=== PATIENT | male | born 2000 | race Caucasian/White ===

== ENCOUNTER 2024-05-01 12:30 | Inpatient (IN) | payer SELFPAY ==
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
[2024-05-01 12:37] VITALS: BP 122/96; PULSE 97; RESP 16; TEMP 37; O2SAT 98; BMI 25.8
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
[2024-05-01] MEDS: oxyCODONE HCl Immed Release 5 MG TABLET PO ×3 (12:47→21:00)
--- OUTSIDE RECORDS SUMMARY | 2024-05-01 12:54 | XMS_ITS | Continuity of Care Document ---
Author Organization [facility] Mike Curry John lt Address [address] [place] [address]- Care Team Providers Care Cylinder Honer Name Role Phone Braden Bustamante MD Primary Care Physician [facility] Date[facility]s): 10[facility]20 - 10/17/20 [facility] Mike Curry Adult [address] [place] [address]- Attending Physician: Braden Bustamante MD Allergies, Adverse Reactions, Alerts Substance Reaction Severity Status NKA Active Immunizations Given and Recorded Vaccine Date Status Refusal Reason tetanus/diphtheria/pertussis, acel(Tdap) 03/10/18 Recorded tetanus/diphtheria/pertussis, acel(Tdap) 05/16/13 Recorded Varicella Virus Vaccine 05/16/13 Recorded Varicella Virus Vaccine 03/14/99 Recorded Meningococcal Conjugate Vaccine 01/07/12 Recorded Human Papillomavirus Vaccine 01/07/12 Recorded Influenza Virus Vaccine (oldterm) 05/21/10 Recorde d Influenza Virus Vaccine (oldterm) 07/31/09 Recorde d influ virus vac, H1N1, inactive(oldterm) 07/31/09 Recorded Poliovirus Vaccine, Inactivated 02/23/02 Recorded Poliovirus Vaccine, Inactivated 07/09/99 Recorded Poliovirus Vaccine, Inactivated 98 Recorded Poliovirus Vaccine, Inactivated 98 Recorded Measles/Mumps/Rubella Virus Vaccine 02/23/02 Recor ded Measles/Mumps/Rubella Virus Vaccine 03/14/99 Recor ded diphtheria/tetanus/pertussis, acel(DTaP) 02/23/02 Recorded diphtheria/tetanus/pertussis, acel(DTaP) 03/26/00 Recorded diphtheria/tetanus/pertussis, acel(DTaP) 98 Recorded diphtheria/tetanus/pertussis, acel(DTaP) 98 Recorded diphtheria/tetanus/pertussis, acel(DTaP) 98 Recorded Haemophilus B Conj Vaccine (oldterm) 07/09/99 Reuben rded Haemophilus B Conj Vaccine (oldterm) 98 Reuben rded Haemophilus B Conj Vaccine (oldterm) 98 Reuben rded Hepatitis B Vaccine (old term) 98 Recorded Hepatitis B Vaccine (old term) 98 Recorded Hepatitis B Vaccine (old term) 98 Recorded Not Given Vaccine Date Status Refusal Reason Influenza Virus Vaccine (oldterm) 1 05/30/19 Not G iven Parent Or Guardian Refuses 1Result Comment: PT HAS 99.9 TEMP WITH TYLENOL Medications triamcinolone 0.1% topical cream See Instructions, Apply a thin coat twice daily to affected areas and then wash hands., # 60 Gm, 0 Refills, Maintenance, 10/10/20 11:32:00 EST, [facility]/pharmacy #[id number], Partial fill upon patient request if the prescription is for a schedule II opioid drug.... Start Date: 10/10/20 Status: Ordered Problem List Condition Effective Dates Status Health Status Inform ant Acne(Confirmed) Active Anxiety(Confirmed) Active Brain concussion(Confirmed) Active Dysuria(Confirmed) Active Epididymitis(Confirmed) Active Sinusitis(Confirmed) Active Tinea pedis of both feet(Confirmed) Active Tobacco use(Confirmed) Active Vital Signs Most recent to oldest [Reference Range]: 1 Height 183.5 cm (10/10/20 9:50 AM) Weight 78.0 kg (10/10/20 9:50 AM) Body Mass Index [18.5-24.99] 23.16 (10/10/20 9:50 AM) Weight Obtained Via Standing scale (10/10/20 9:50 AM) Social History Social History Type Response Smoking Status Current every day vilma talley; Type: Cigarettes entered on: 12/04/16 Sex
--- OUTSIDE RECORDS SUMMARY | 2024-05-01 12:54 | XMS_ITS | Continuity of Care Document ---
Author Organization [facility] Mike Curry John lt Address [address] [place] [address]- Care Team Providers Care Outsewer Name Role Phone Robby SHEIKH, Braden Mae Primary Care Physician [facility]): 03/21/21 - 03/28/21 [facility] Mike Curry Adult [address] [place] [address]- Attending Physician: Irwin MENEZES, Jewels Pacheco Allergies, Adverse Reactions, Alerts Substance Reaction Severity [...] PT HAS 99.9 TEMP WITH TYLENOL Medications famotidine 10 mg oral tablet 1 tablet = 10 mg, By Mouth, 2 times a day, # 28 tablet, 0 Refills, Maintenance, 03/21/21 13:34:00 EDT, Tablet, [facility] #[id number], Partial fill upon patient request if the prescription is for a schedule II opioid drug., 183.5, cm, 03/21/21 12:56:00 ED... Start Date: 03/21/21 Status: Ordered hydrOXYzine hydrochloride 25 mg oral tablet 0.5 tablet = 12.5 mg, By Mouth, 4 times a day, PRN as needed for itching, 15 to 30 minutes prior tosurgery, # 60 tablet, 0 Refills, Acute 04/21/21 18:00:00 EDT, 03/21/21 13:32:00 EDT, [id number], Partial fill upon patient request if the presc... Start Date: 03/21/21 Stop Date: 04/21/21 Status: Ordered triamcinolone 0.1% topical cream See Instructions, Apply a thin coat twice daily to affected areas and then wash hands., # 60 Gm, 0 Refills, Maintenance, 10/10/20 11:32:00 EST, [id number], Partial fill upon patient request if the [...] oldest [Reference Range]: 1 Height 183.5 cm (03/21/21 12:56 PM) Weight 72.6 kg (03/21/21 12:56 PM) Oxygen Saturation [94-100 %] 96 % (03/21/21 12:56 PM) Pulse Rate [55-90 bpm] 97 bpm *H* (03/21/21 12:56 PM) Body Mass Index [18.5-24.99] 21.56 (03/21/21 12:56 PM) Blood Pressure [90-138/55-84 mm Hg] 114/ 64mm Hg (03/21/21 12:56 PM) Temperature [96.8-100.4 DegF] 98.7 DegF (03/21/21 12:56 PM) Mode of Delivery (Oxygen) Room air (03/21/21 12:56 PM) Blood pressure sites Arm, left (03/21/21 12:56 PM) Temperature Route Oral (03/21/21 12:56 PM) Weight Obtained Via Standing scale (03/21/21 12:56 PM) Social History Social History Type Response Smoking Status Current every day vilma talley; Type: Cigarettes entered on: 12/04/16 Sex
--- OUTSIDE RECORDS SUMMARY | 2024-05-01 12:54 | XMS_ITS | Continuity of Care Document ---
Author Organization [facility] John lt Address [address] [place] [address]- Care Team Providers Care Roller Skate Assembler Name Role Phone Robby SHEIKH, Braden Mae Primary Care Physician [phone] [facility] Date[facility]s): 10/10/20 - 11/09/20 [facility] Adult [address] [place] [address]- Attending Physician: Liborio Oswald Admitting Physician: AdmLiborio narayan Referring Physician: AdmtrLiborio Allergies, Adverse Reactions, Alerts Substance Reaction Severity [...] Gm, 0 Refills, Maintenance, 10/10/20 11:32:00 EST, [facility]/pharmacy #[id number], Partial fill upon patient request if the prescription is for a schedule II opioid drug.... Start Date: 10/10/20 Status: Ordered Problem List Condition Effective Dates Status Health Status Inform ant Acne(Confirmed) Active Anxiety(Confirmed) Active Brain concussion(Confirmed) Active Dysuria(Confirmed) Active Epididymitis(Confirmed) Active Sinusitis(Confirmed) Active Tinea pedis of both feet(Confirmed) Active Tobacco use(Confirmed) Active Social History Social History Type Response Smoking Status Current every day vilma talley; Type: Cigarettes entered on: 12/04/16 Sex
--- OUTSIDE RECORDS SUMMARY | 2024-05-01 12:54 | XMS_ITS | Continuity of Care Document ---
Author Organization [facility] Mike Curry John lt Address [address] [place] [address]- Care Team Providers Care Electrophysiology Scientist Name Role Phone Braden Bustamante MD Primary Care Physician [facility] Date[facility]s): 04/13/21 - 09/12/21 [facility] Mike Curry Adult [address] [place] [address]- Attending Physician: Braden Bustamante MD Allergies, Adverse Reactions, Alerts No Known Allergies Immunizations Given and Recorded Vaccine Date Status [...] Comment: PT HAS 99.9 TEMP WITH TYLENOL Problem List Condition Effective Dates Status Health Status Inform ant Acne(Confirmed) Active Anxiety(Confirmed) Active Brain concussion(Confirmed) Active Dysuria(Confirmed) Active Epididymitis(Confirmed) Active Fatigue(Confirmed) Active Hair loss(Confirmed) Active Sinusitis(Confirmed) Active Tinea pedis of both feet(Confirmed) Active Tobacco use(Confirmed) Active Social History Social History Type Response Smoking Status Former smoker, quit more than 30 days ago entered on: 06/14/21 Sex
--- OUTSIDE RECORDS SUMMARY | 2024-05-01 12:54 | XMS_ITS | Continuity of Care Document ---
Author Organization [facility] Patricio John lt Address [address] [place] [address]- Care Team Providers Care Credit Checker Name Role Phone Robby SHEIKH, Braden Mae Primary Care Physician Encounter [facility] Date(s): 10/18/19 - 10/28/19 [facility] [place] Adult [address] [place] [address]- [facility] Attending Physician: Liborio Oswald Admitting Physician: AdmLiborio [...]
--- OUTSIDE RECORDS SUMMARY | 2024-05-01 12:54 | XMS_ITS | Continuity of Care Document ---
Author Organization [facility] John lt Address [address] [place] [address]- Care Team Providers Care Education Nurse Name Role Phone Braden Bustamante MD Primary Care Physician [phone] Encounter [facility] Date(s): 05/11/23 - 05/18/23 [facility] Adult [address] [place] [address]- Attending Physician: Braden Bustamante MD Allergies, Adverse Reactions, Alerts No Known Allergies Immunizations Given and Recorded Vaccine Date Status Refusal Reason influenza virus vaccine, inactivated 1 05/11/23 [facility] SARS-CoV-2 (COVID-19) mRNA BNT-162b2 vac 08/20/21 Recorded tetanus-diphtheria toxoids (Td) 04/13/18 Recorded tetanus/diphtheria/pertussis, acel(Tdap) 03/10/18 Recorded tetanus/diphtheria/pertussis, acel(Tdap) 05/16/13 [...] Hepatitis B Vaccine (old term) 98 Recorded 1Result Comment: [facility]-[id number] Medications clindamycin-tretinoin 1.2%-0.025% topical gel 1 application, Topically, Daily at bedtime, # 60 Gm, 0 Refills, Maintenance, 05/11/23 13:22:00 EDT,[facility], Partial fill upon patient request if the prescription is for a schedule II opioid drug. Start Date: 05/11/23 Status: Ordered Doxycycline 100 mg, By Mouth, 2 times a day, Maintenance, 05/11/23 13:21:00 EDT Start Date: 05/11/23 Status: Ordered Problem List Condition Confirmation Course Effective Dates Status Health St atus Informant Acne Confirmed Active Anxiety Confirmed Active Brain concussion Confirmed Active Dysuria Confirmed Active Epididymitis Confirmed Active Fatigue Confirmed Active Hair loss Confirmed Active Sinusitis Confirmed Active Tinea pedis of both feet Confirmed Active Tobacco use Confirmed Active Vital Signs Most recent to oldest [Reference Range]: 1 Height 183.5 cm (05/11/23 1:18 PM) Weight 85.2 kg (05/11/23 1:18 PM) Oxygen Saturation [94-100 %] 98 % (05/11/23 1:18 PM) Pulse Rate [55-90 bpm] 87 bpm (05/11/23 1:18 PM) Body Mass Index [18.5-24.99 kg/m2] 25.3 kg/m2 *H* (05/11/23 1:18 PM) Blood Pressure [90-138/55-84 mm Hg] 125/ 58mm Hg (05/11/23 1:18 PM) Respiratory Rate [16-30 br/min] 16 br/mi n (05/11/23 1:18 PM) Temperature [96.8-100.4 DegF] 98.3 DegF (05/11/23 1:18 PM) Mode of Delivery (Oxygen) Room air (05/11/23 1:18 PM) Blood pressure sites Arm, left (05/11/23 1:18 PM) Temperature Route Oral (05/11/23 1:18 PM) Weight Obtained Via Standing scale (05/11/23 1:18 PM) Social History Social History Type Response Smoking Status Former smoker, quit more than 30 days ago entered on: 06/14/21 Sex Patient Care team information Care Team Personnel Name: Braden Bustamante MD Position: S Physician - Primary Care Member Role: PCP Address: Address: [address] [place] [address]- Care Team Related Persons Name: PEDRO CASTRO Address: [address] [place] [address] Name: PEDRO CASTRO Address: home [address] [place] [id number] Name: KASEY MENON Address: home [address] [place] [address]
--- OUTSIDE RECORDS SUMMARY | 2024-05-01 12:54 | XMS_ITS | Continuity of Care Document ---
Author Organization [facility] Mike Curry John Address [address] [place] [address]- Care Team Providers Care Clinical Fellow Name Role Phone Braden Bustamante MD Primary Care Physician [phone] [facility] Date(s): 07/19/19 - 11/17/19 [facility] Mike Carcamoley Adult [address] [place] [address]- [facility] Attending Physician: Braden Bustamante MD Allergies, Adverse [...]
--- OUTSIDE RECORDS SUMMARY | 2024-05-01 12:54 | XMS_ITS | Continuity of Care Document ---
Author Organization [facility] Patricio John lt Address [address] [place] [address]- Care Team Providers Care What Job Titles Mean Name Role Phone Braden Bustamante MD Primary Care Physician [facility] Date(s): 06/14/21 - 06/21/21 [facility] Mike Carcamoley Adult [address] [place] [address]- Attending Physician: Braden Bustamante MD Allergies, Adverse [...] oldest [Reference Range]: 1 Height 183.5 cm (06/14/21 2:03 PM) Weight 76.36 kg (06/14/21 2:03 PM) Body Mass Index [18.5-24.99] 22.68 (06/14/21 2:03 PM) Weight Obtained Via Standing scale (06/14/21 2:03 PM) Social History Social History Type Response Smoking Status Former smoker, quit more than 30 days ago entered on: 06/14/21 Sex
--- OUTSIDE RECORDS SUMMARY | 2024-05-01 12:54 | XMS_ITS | Continuity of Care Document ---
Author Organization [facility] Mike Curry John lt Address [address] [place] [address]- Care Team Providers Care Carrier Operator Name Role Phone Braden Bustamante MD Primary Care Physician [phone] Encounter [facility] Date(s): 01/10/21 - 01/17/21 [facility] [place] Adult [address] [place] [address]- Attending Physician: Braden Bustamante MD Allergies, Adverse [...] Gm, 0 Refills, Maintenance, 10/10/20 11:32:00 EST, [facility]/pharmacy #[id number], Partial fill upon patient request if [...] oldest [Reference Range]: 1 Height 183.5 cm (01/10/21 11:13 AM) Weight 77.5 kg (01/10/21 11:13 AM) Oxygen Saturation [94-100 %] 98 % (01/10/21 11:13 AM) Pulse Rate [55-90 bpm] 60 bpm (01/10/21 11:13 AM) Body Mass Index [18.5-24.99] 23.02 (01/10/21 11:13 AM) Blood Pressure [90-138/55-84 mm Hg] 98/6 0mm Hg (01/10/21 11:13 AM) Respiratory Rate [16-30 br/min] 16 br/mi n (01/10/21 11:13 AM) Temperature [96.8-100.4 DegF] 98.3 DegF (01/10/21 11:13 AM) Mode of Delivery (Oxygen) Room air (01/10/21 11:13 AM) Blood pressure sites Arm, right (01/10/21 11:13 AM) Temperature Route Oral (01/10/21 11:13 AM) Weight Obtained Via Standing scale (01/10/21 11:13 AM) Social History Social History Type Response Smoking Status Current every day vilma talley; Type: Cigarettes entered on: 12/04/16 Sex
--- OUTSIDE RECORDS SUMMARY | 2024-05-01 12:54 | XMS_ITS | Continuity of Care Document ---
Author Organization [facility] John lt Address [address] [place] [address]- Care Team Providers Care Cross Tie Turner Name Role Phone Robby SHEIKH, Braden Mae Primary Care Physician [facility] Date(s): 08/13/21 - 09/12/21 [facility] Adult [address] [place] [address]- Attending Physician: Liborio Oswald Admitting Physician: AdmLiborio narayan Referring Physician: AdmtrLiborio Allergies, Adverse Reactions, Alerts No Known Allergies [...]
[2024-05-01] MEDS: Acetaminophen 325 MG TABLET 975 MG PO (13:15)
[2024-05-01] MEDS: Ibuprofen 600 MG TABLET PO (13:16)
[2024-05-01 15:18] VITALS: BP 114/61; PULSE 96; RESP 18; TEMP 36.7; O2SAT 98
--- NOTE | 2024-05-01 15:59 | PHA.MEDREC ---
Addendum entered by Chirag Thomas [facility] 05/01/24 16:47: MED REC CHECKED PER [facility] Original Note: Pharmacy Consult ? Medication Reconciliation Pharmacy has completed the medication reconciliation.
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
[2024-05-01 17:08] LABS: Basophils Percent Auto 0.2 % (0-2); Eosinophils Percent Auto 0.1 % (0-4); Hematocrit 48.4 % (42.0-52.0); Hemoglobin 16.7 g/dl (14.0-18.0); Imm Gran Abs Auto 0.08 X10*3/uL (0.00-0.03); Imm Gran Pct Auto 0.4 % (0.0-0.4); Lymphocytes Absolute Auto 1.1 X10*3/uL (1.2-4.9); MANUAL DIFF FLAG NO; Mean Corpuscular HGB Conc 34.5 g/dl (31.0-36.0); Mean Corpuscular Volume 92.7 fL (80.0-98.0); Mean Platelet Volume 10.4 fL (9.4-12.4); Monocytes Absolute Auto 1.2 X10*3/uL (0.1-1.2); Monocytes Percent Auto 6.6 % (2-11); Neutrophils Absolute Auto 15.4 x10*3/uL (2.0-8.3); Neutrophils Percent Auto 86.7 % (45-73); Platelet Count 336 X10*3/uL (160-400); Red Blood Count 5.22 X10*6/uL (4.60-5.80); Red Cell Distribution Width 13.2 % (11.0-16.0); White Blood Count 17.8 X10*3/uL (4.8-10.8)
[2024-05-01] MEDS: Lactated Ringers 1,000 ML 100 ML IVCONT (17:14)
--- NOTE | 2024-05-01 19:22 | PC.NURSE ---
pt resting quietly on exam room stretcher, Posterior long leg splint applied loosely by orthpedics PA- right leg elevated per ortho above the heart. pt verbalizes pain improvement with splinting, positioning, elevation and medication. Plan is for IMN in OR in AM.
[2024-05-01 19:29] VITALS: BP 116/58; PULSE 96; RESP 16; TEMP 37.1; O2SAT 97
[2024-05-01 20:25] VITALS: BP 117/57; PULSE 109; RESP 18; TEMP 36.7; O2SAT 97
[2024-05-01] MEDS: Melatonin 3 MG TABLET 6 MG PO (22:11)
[2024-05-01 22:49] VITALS: BMI 26.0
[2024-05-01 23:16] VITALS: BP 117/56; PULSE 88; RESP 18; TEMP 36.6; O2SAT 97
[2024-05-01] MEDS: HYDROmorphone HCl 0.5 MG/0.5 ML SYRINGE 0.25 MG IVPUSH (23:35)
[2024-05-02] VITALS (11 sets, daily range): BP systolic 112–140; BP diastolic 55–79; PULSE 82–130; RESP 14–18; TEMP 36.5–37.7; O2SAT 95–99; BMI 26.0
[2024-05-02] MEDS: Lactated Ringers 1,000 ML 100 ML IVCONT ×2 (01:52→10:47)
[2024-05-02] MEDS: oxyCODONE HCl Immed Release 5 MG TABLET PO ×3 (01:52→08:22)
[2024-05-02] MEDS: HYDROmorphone HCl 0.5 MG/0.5 ML SYRINGE 0.25 MG IVPUSH ×4 (03:12→21:37)
--- NOTE | 2024-05-02 05:23 | PC.NURSE ---
right leg elevated on4-5 pillow +cms to toes. pt asked to remove some of the bandage it was too tight around the ankle . felt better after, some relief from ice application only for little while
[2024-05-02 06:53] LABS: MANUAL DIFF FLAG NO
[2024-05-02 07:22] LABS: Basophils Percent Auto 0.2 % (0-2); Eosinophils Absolute Auto 0.3 X10*3/uL (0.0-0.4); Eosinophils Percent Auto 2.2 % (0-4); Hemoglobin 16.1 g/dl (14.0-18.0); Imm Gran Abs Auto 0.06 X10*3/uL (0.00-0.03); Imm Gran Pct Auto 0.5 % (0.0-0.4); Lymphocytes Absolute Auto 2.6 X10*3/uL (1.2-4.9); Lymphocytes Percent Auto 19.5 % (20-40); Mean Corpuscular HGB Conc 33.5 g/dl (31.0-36.0); Mean Corpuscular Hemoglobin 31.9 pg (27.0-33.0); Mean Corpuscular Volume 95.2 fL (80.0-98.0); Monocytes Absolute Auto 1.4 X10*3/uL (0.1-1.2); Monocytes Percent Auto 10.8 % (2-11); Neutrophils Absolute Auto 8.7 x10*3/uL (2.0-8.3); Neutrophils Percent Auto 66.8 % (45-73); Platelet Count 299 X10*3/uL (160-400); Red Blood Count 5.04 X10*6/uL (4.60-5.80); Red Cell Distribution Width 13.7 % (11.0-16.0); White Blood Count 13.1 X10*3/uL (4.8-10.8)
[2024-05-02 07:24] LABS: Anion Gap 12 (12-20); Blood Urea Nitrogen 12 mg/dL (9-16); Calcium 8.8 mg/dL (8.4-10.2); Carbon Dioxide 27 mmol/L (22-29); Chloride 107 mmol/L (96-108); Creatinine Clr Calc Pharmacy 126.6; Estimated Glomerular Filt Rate > 60; Glucose Fasting 81 mg/dL (60-99); Potassium 4.3 mmol/L (3.3-5.1); Sodium 142 mmol/L (135-145)
--- NOTE | 2024-05-02 09:50 | MHC.CM.PN ---
PT LIVES WITH S/O IS INDEPENDENT HAS OWN RIDE HOME DC PLAN HOME NO SERVIES
--- NOTE | 2024-05-02 13:17 | PC.NURSE ---
Pt asking for increase in pain med, waiting for provider to increase.
[2024-05-02] MEDS: oxyCODONE HCl Immed Release 5 MG TABLET 10 MG PO ×2 (13:44→19:43)
--- NOTE | 2024-05-02 14:30 | P.CONAN_ITS ---
PMFSH Active Problems Active Problems: All Active Problems Closed fracture of posterior malleolus of right tibia (Acute) Closed fracture of right tibia and fibula (Acute) Closed fracture of posterior malleolus (Acute) Fracture of tibia and fibula (Acute) Family History Family history of problems with anesthesia: No Surgical History History of Problems with Anesthesia: No Social History Social History Household Members: Friend(s) Housing: House Do you presently have visiting nurse or other home services: No Patient Tobacco Use Status: Never used Tobacco e-Cigarette/Vaping Use: Never Used Substance Use Type: Marijuana service: No Meds Allergies Allergy/AdvReac Type Severity Reaction Status Date / Time No Known Allergies Allergy Verified 05/01/24 12:40 Active Medications: Current Medications Acetaminophen (Acetaminophen 325 Mg Tablet) 650 mg PO Q6H PRN PRN Reason: Pain, Mild (Pain Scale 1-3), fever or headache Hydromorphone HCl (Hydromorphone Hcl 0.5 Mg/0.5 Ml Syringe) 0.25 mg IVPUSH Q4H PRN; Protocol PRN Reason: Pain, Severe (Pain Scale 7-10) Last Admin: 05/02/24 11:37 Dose: 0.25 mg Lactated Ringer's (Lr) 1,000 mls @ 100 mls/hr IVCONT .Q10H IVETTE Last Admin: 05/02/24 10:47 Dose: 100 mls/hr Melatonin (Melatonin 3 Mg Tablet) 6 mg PO BEDTIME PRN PRN Reason: Insomnia Last Admin: 05/01/24 22:11 Dose: 6 mg Oxycodone HCl (Oxycodone Hcl Immed Release 5 Mg Tablet) 10 mg PO Q4H PRN PRN Reason: Pain, Moderate(Pain Scale 4-6) Last Admin: 05/02/24 13:44 Dose: 10 mg Sodium Chloride (0.9 % Sodium Chloride Flush 3 Ml Syringe) 3 ml IVFLUSH QSHIFT IVETTE Last Admin: 05/02/24 07:09 Dose: Not Given Exam Height,Weight and Vital Signs: Height 6 ft Weight 87 kg Last Vital Signs Temp 98.4 F 05/02/24 08:00 Pulse 93 05/02/24 08:00 Resp 14 05/02/24 08:00 BP 114/55 L 05/02/24 08:00 Pulse Ox 97 05/02/24 08:00 O2 Del Method Room Air 05/02/24 08:00 Pertinent Lab Results Pertinent Lab Results: Laboratory Tests 05/01/24 05/01/24 05/02/24 16:52 17:07 05:04 WBC 17.8 H 13.1 H RBC 5.22 5.04 Hgb 16.7 16.1 Hct 48.4 48.0 MCV 92.7 95.2 MCH 32.0 31.9 MCHC 34.5 33.5 RDW 13.2 13.7 Plt Count 336 299 MPV 10.4 11.0 Immature Gran % (Auto) 0.4 0.5 H Neut % (Auto) 86.7 H 66.8 Lymph % (Auto) 6.0 L 19.5 L [place] % (Auto) 6.6 10.8 Eos % (Auto) 0.1 2.2 Baso % (Auto) 0.2 0.2 Lymph # (Auto) 1.1 L 2.6 [place] # (Auto) 1.2 1.4 H Eos # (Auto) 0.0 0.3 Baso # (Auto) 0.0 0.0 Abs Immat Gran (auto) 0.08 H 0.06 H Absolute Neuts (auto) 15.4 H 8.7 H Absolute Nucleated RBC 0.000 0.000 Nucleated RBC % (auto) 0.0 0.0 Sodium 142 Potassium 4.3 Chloride 107 Carbon Dioxide 27 Anion Gap 12 BUN 12 Creatinine 0.97 Estim Creat Clear Calc 126.6 Estimated GFR > 60 Fasting Glucose 81 Calcium 8.8 Blood Type A Positive Antibody Screen NEGATIVE Airway Mallampati Class: I TM Dist: >3cm Neck ROM: Full Heart: rrr Lungs: cta Assessment and Plan Assessment Anesthesia Assessment: Anesthesia Plan Discussed and Chart Reviewed Final Anesthetic Review Family History of Problems with Anesthesia: No History of Problems with Anesthesia: No NPO: Yes ASA Class: I and Emergency Final Preanesthetic Review: No Changes in Pt Med Stat, Meds/Allgs Chart Reviewed and Consent Obtained/Reviewed Patient Risk: Low Procedure Risk: Low Anesthetic Plan Anesthetic Plan: GA Disposition: Standard PACU
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
[2024-05-03] MEDS: Melatonin 3 MG TABLET 6 MG PO
[2024-05-03] MEDS: oxyCODONE HCl Immed Release 5 MG TABLET 10 MG PO ×3 (00:02→08:20)
[2024-05-03] MEDS: Lactated Ringers 1,000 ML 100 ML IVCONT ×2 (00:04→10:34)
[2024-05-03] MEDS: HYDROmorphone HCl 0.5 MG/0.5 ML SYRINGE 0.25 MG IVPUSH ×2 (01:08→05:52)
[2024-05-03 03:18] VITALS: BP 114/56; PULSE 90; RESP 18; TEMP 37; O2SAT 97
[2024-05-03 06:59] LABS: Basophils Percent Auto 0.1 % (0-2); Eosinophils Absolute Auto 0.1 X10*3/uL (0.0-0.4); Eosinophils Percent Auto 0.4 % (0-4); Hematocrit 43.4 % (42.0-52.0); Hemoglobin 14.8 g/dl (14.0-18.0); Imm Gran Abs Auto 0.08 X10*3/uL (0.00-0.03); Imm Gran Pct Auto 0.5 % (0.0-0.4); Lymphocytes Absolute Auto 2.4 X10*3/uL (1.2-4.9); MANUAL DIFF FLAG SCAN; Mean Corpuscular HGB Conc 34.1 g/dl (31.0-36.0); Mean Corpuscular Hemoglobin 32.1 pg (27.0-33.0); Mean Corpuscular Volume 94.1 fL (80.0-98.0); Mean Platelet Volume 11.1 fL (9.4-12.4); Monocytes Absolute Auto 1.8 X10*3/uL (0.1-1.2); Monocytes Percent Auto 11.2 % (2-11); Neutrophils Absolute Auto 11.8 x10*3/uL (2.0-8.3); Neutrophils Percent Auto 72.8 % (45-73); Platelet Count 288 X10*3/uL (160-400); Red Blood Count 4.61 X10*6/uL (4.60-5.80); Red Cell Distribution Width 13.6 % (11.0-16.0); SCAN SMEAR FLAG 1; White Blood Count 16.2 X10*3/uL (4.8-10.8)
[2024-05-03 07:43] VITALS: BP 114/58; PULSE 99; RESP 14; TEMP 37; O2SAT 97
[2024-05-03 08:17] LABS: SLIDE REVIEW VERIFIED
--- NOTE | 2024-05-03 08:21 | HO.POSTANES ---
Post Anesthesia Evaluation Post Anesthesia Evaluation Date of Service: 05/02/24 Vital Signs: Vital Signs Temp Pulse Resp BP Pulse Ox O2 Del Method 05/03/24 07:43 98.6 F 99 14 114/58 L 97 Room Air 05/03/24 03:18 98.6 F 90 18 114/56 L 97 Room Air 05/02/24 23:46 97.7 F 100 18 112/55 L 97 Room Air Anesthesia: General Mental Status: Awake Pain Control: Satisfactory Nausea/Vomiting: None Hydration: Adequate Anesthesia-Related Issues: No Anes. Related Issues
--- NOTE | 2024-05-03 10:32 | PM.PNORT ---
Subjective Subjective Date of Service: 05/03/24 Interval history: Patient is POD 1 s/p R tibia IMN Patient is resting comfortably in bed Reports that pain is significantly improved from pre-op Reports no feelings of pressure in the RLE No numbness or tingling in RLE No other acute complaints or concerns at this time Physical Exam Vital Signs: Vital Signs: Last Vital Signs Temp 98.6 F 05/03/24 07:43 Pulse 99 05/03/24 07:43 Resp 14 05/03/24 07:43 BP 114/58 L 05/03/24 07:43 Pulse Ox 97 05/03/24 07:43 O2 Del Method Room Air 05/03/24 07:43 O2 Flow Rate 2 05/02/24 19:20 BMI result Body Mass Index 26.0 Extrem: Other: Splint on right lower extremity clean, dry, intact Compartments soft and compressible to palpation Patient reports minimal tenderness to the right lower extremity with palpation of compartments Patient is able to flex and extend the digits of the right foot without difficulty Distal sensation intact Capillary refill brisk Procedures Date of Service Date of Service: 05/03/24 Progress Note: A&P Assessment and plan (1) Closed fracture of posterior malleolus of right tibia: Status: Acute (2) Closed fracture of right tibia and fibula: Status: Acute Plan 1. Right tibial shaft fracture status post IM nail placement DOS 05/02/2024 2. Nondisplaced right fibular shaft fracture 3. Nondisplaced posterior malleolus fracture, right Patient is educated about these fractures Patient is educated about the typical recovery course Patient is educated that further surgical intervention was not indicated for the other fractures in his right lower leg, as they will be able to heal without surgery Patient will be toe-touch weight-bearing on the right lower extremity Patient will remain in a splint until follow-up, to allow for decreases in swelling Patient will be evaluated by PT this morning, hopeful for discharge this afternoon Patient will follow-up in our office in 1 week with repeat x-rays Patient is amenable to this plan Time Spent With Patient Time: Total time managing care of this patient today ____ minutes. Quality Stroke Does the patient have a stroke diagnosis?: No VTE Prior VTE?: No VTE Risk Level:: Surgical - high VTE Device Contraindication: N/A - Device Ordered VTE Drug Contraindication: Treatment Not Indicated (Patient having surgery tomorrow)
[2024-05-03] MEDS: Acetaminophen 325 MG TABLET 650 MG PO (10:33)
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
--- NOTE | 2024-05-03 11:11 | MHC.CM.PN ---
pt dcd home self care
--- NOTE | 2024-05-03 11:17 | PM.DS ---
DS: Providers Provider Date of Service: 05/03/24 Date of admission: 05/01/24 16:17 Primary care physician: Braden Bustamante MD DS: Diagnosis Discharge Diagnosis (1) Closed fracture of posterior malleolus of right tibia: Status: Acute (2) Closed fracture of right tibia and fibula: Status: Acute DS: Summary Hospital Course Hospital Course: The patient underwent a successful right tibia IM nail placement on 05/02/2024 for right tibial shaft fracture, was transferred to PACU and then to the floor to recover. During their stay, their vitals were stable, afebrile at 98.6. Labs were unremarkable, H/H 14.8/43.4. they received Physical Therapy services twice a day. He is TTWB on right lower extremity. The splint and dressing should remain intact and dry at all times. Any concerns with the dressing, please contact orthopedic office. No showering. The plan is to be discharged Time Attestation Discharge Coordination Time (in mins): 30 minutes Quality: Safe Use of Opioids Does Pt have an Active Cancer Diagnosis on the Problem List?: No Quality: Stroke Does the patient have a stroke diagnosis?: No Physical Exam Vital Signs: Vital Signs: Last Vital Signs Temp 98.6 F 05/03/24 07:43 Pulse 99 05/03/24 07:43 Resp 14 05/03/24 07:43 BP 114/58 L 05/03/24 07:43 Pulse Ox 97 05/03/24 07:43 O2 Del Method Room Air 05/03/24 07:43 O2 Flow Rate 2 05/02/24 19:20 BMI result Body Mass Index 26.0 Extrem: Other: Splint on right lower extremity clean, dry, intact Compartments soft and compressible to palpation Patient reports minimal tenderness to the right lower extremity with palpation of compartments Patient is able to flex and extend the digits of the right foot without difficulty Distal sensation intact Capillary refill brisk DS: Data Data Completed and Pending Labs on day of discharge: Laboratory Results - last 24 hr 05/03/24 05:19 WBC 16.2 H RBC 4.61 Hgb 14.8 Hct 43.4 MCV 94.1 MCH 32.1 MCHC 34.1 RDW 13.6 Plt Count 288 MPV 11.1 Immature Gran % (Auto) 0.5 H Neut % (Auto) 72.8 Lymph % (Auto) 15.0 L Calhoun % (Auto) 11.2 H Eos % (Auto) 0.4 Baso % (Auto) 0.1 Lymph # (Auto) 2.4 Calhoun # (Auto) 1.8 H Eos # (Auto) 0.1 Baso # (Auto) 0.0 Abs Immat Gran (auto) 0.08 H Absolute Neuts (auto) 11.8 H Absolute Nucleated RBC 0.000 Nucleated RBC % (auto) 0.0 Smear Tech's Comments VERIFIED Discharge Plan Discharge Anticipated Discharge Date/Time: 05/03/24 14:00 Patient Disposition: Home, Self-Care Discharge Diagnosis: S/p R tibia IM nail placement, R fibular shaft fracture, R posterior malleolus fracture Referrals: Torin John PA [[facility] Desktop Support Specialist] - 1 Week ([facility] Orthopedic Surgeons Appointment on 05/13/24 at 11:30 w/ Torin John) Discharge Medications: New acetaminophen 325 mg Tablet 650 mg PO Q6H PRN (Reason: Pain, Mild (Pain Scale 1-3), fever or headache) 30 Days Qty: 240 0RF oxycodone 10 mg tablet 10 mg PO Q4H PRN (Reason: Pain, Moderate(Pain Scale 4-6)) 7 Days Qty: 42 0RF Rx Instructions: Partial Fill upon patient request. ibuprofen 800 mg tablet 800 mg PO Q6H PRN (Reason: pain) 7 Days Qty: 28 0RF Discharge Orders: Discharge Order (Routine); Ordered 05/03/24 Ordered By: Torin John Diet: Advance to usual diet Activity on Discharge: Toe touch weight bearing on RLE Stand Alone Forms: Patient Portal Discharge page Print Language: Uzbek Care Plan Goals: Fracture healing of R tibia, R fibula, R posterior malleolus Caodaism of normal function of right lower extremity Health Concerns: R tibia fracture s/p IMN R fibula fx R posterior malleolus fracture Plan of Treatment: Toe touch weight bearing on RLE Use crutches to aid with ambulation ? No showering, no tub bath-keep splint clean, dry and intact ? No driving ? Follow up with [facility] Orthopedics in 1 week on 05/13/24 with Torin John at 11:30 Assessment: Stable for d/c
== END 2024-05-03 12:18 | disposition home or self-care (01) | DRG 494 ==
LOC: HO.ED 15:00 → HO.EDOVER 16:32 → HO.S3 19:24
PROVIDERS: Orthopaedic Surgery; Emergency Provider Emergency Medicine; PCP Internal Medicine
PROC: 0QSG36Z Reposition Right Tibia with Intramedullary Internal Fixation Device, Percutaneous Approach (ICD-10-PCS; principal; 2024-05-02 15:00)
DX: S82.234A Nondisplaced oblique fracture of shaft of right tibia, initial encounter for closed fracture (principal); S82.431A Displaced oblique fracture of shaft of right fibula, initial encounter for closed fracture; S82.891A Other fracture of right lower leg, initial encounter for closed fracture; V86.96XA Unspecified occupant of dirt bike or motor/cross bike injured in nontraffic accident, initial encounter
CPT/HCPCS: 36415; 73590; 73600; 73620; 80048; 85025; 86850; 86900; 86901; 97161; 99285; C1713; J0690; J1100; J1170; J2250; J2405; J2704; J2795; J3010; J7120

== ENCOUNTER → 2024-05-01 16:17 | Outpatient (BNV) | payer SELFPAY | PROVIDERS: Emergency Provider Emergency Medicine; PCP Internal Medicine | DX: S82.391A Other fracture of lower end of right tibia, initial encounter for closed fracture (principal); S82.201A Unspecified fracture of shaft of right tibia, initial encounter for closed fracture; S82.401A Unspecified fracture of shaft of right fibula, initial encounter for closed fracture | CPT/HCPCS: 27759; 99024; 99222 ==

== ENCOUNTER 2024-05-13 10:51 | Outpatient (REF) | payer SELFPAY ==
--- NOTE | ~2024-05-13 | XR_ITS ---
EXAMINATION: XR ANKLE RIGHT 3 VIEWS CLINICAL INFORMATION: Pain in unspecified ankle and joints of unspecified foot M25.579. COMPARISON: XR Right ankle 05/01/2024 TECHNIQUE: AP, lateral and oblique views of the right ankle. FINDINGS: Visualized portions of the distal tibia and fibula demonstrate no acute fracture. Ankle mortise is maintained. There are some mild degenerative changes of the tibiofibular joint. Partially visualized hardware of the tibia with interval partial healing of a distal oblique tibial fracture. Nondisplaced posterior malleolus fracture is again noted with no significant interval callus formation. XR/XR ankle RT min 3V IMPRESSION: 1. No acute fracture. 2. Partially visualized hardware of the tibia with interval partial healing of distal tibial fracture and no significant interval healing of posterior malleolus fracture. Electronically signed by: Bashir Wylie MD 07/20/2024 08:57 AM VERNA
--- NOTE | ~2024-05-13 | XR_ITS ---
EXAMINATION: XR TIBIA AND FIBULA RIGHT 3 VIEWS CLINICAL INFORMATION: Other fracture of lower end of right tibia, initial encounter for closed fracture S82.391A. COMPARISON: XR Right tibia fibula 05/01/2024 TECHNIQUE: AP and lateral views of the right tibia and fibula were obtained. FINDINGS: Patient is status post intramedullary josseline and screw fixation through the distal tibial fracture which demonstrates mild interval callus formation. Fracture line is still well visualized. Also noted is a partially healed fracture of the mid fibula. XR/XR tibia fibula RT 2V IMPRESSION: Mild interval callus formation of distal tibia and fibular fractures. Electronically signed by: Bashir Wylie MD 07/20/2024 08:59 AM EST
== END 2024-05-13 10:52 | disposition home or self-care (01) ==
LOC: HO.HOSX 10:51
PROVIDERS: PCP Internal Medicine; Visit Provider Physician Assistant
DX: M25.571 Pain in right ankle and joints of right foot (principal); S82.391D Other fracture of lower end of right tibia, subsequent encounter for closed fracture with routine healing; S82.201D Unspecified fracture of shaft of right tibia, subsequent encounter for closed fracture with routine healing; S82.401D Unspecified fracture of shaft of right fibula, subsequent encounter for closed fracture with routine healing; Z98.890 Other specified postprocedural states
CPT/HCPCS: 73590; 73610; 99212

== ENCOUNTER 2024-05-13 11:23 | Outpatient (AMB) | payer SELFPAY ==
--- NOTE | 2024-05-13 10:54 | A.OFFVIS_ITS ---
Intake Visit Reasons: PO-R tibia IMN 05/02/24 Intake Note: Jhonatan is a 24 year old male who presents today post operatively S/P right tibia IM nail placement for right tibial shaft fracture w/ Dr Blum DOS: 05/02/2024. Pt states the past two days he has noticed less pain. Pt states he doesn't feel as much of a pulsating feeling anymore when he lifts his legs. Pt states he has been using the crutches as directed. Allergies No Known Allergies Allergy (Verified 05/13/24 10:54) HPI HPI PO-R tibia IMN 05/02/24: Details: 24-year-old male who presents in the office today one week status post right tibial IM nailing which was performed on 05/02/[address] Blum. While in the office today, the patient reports improved pain for the past 2 days. He mentions he has not been feeling much ?pulsating? when he lifts his right lower extremity. He has been using the crutches as directed. [facility] Social History Household Members: Friend(s) Housing: House Are you a primary healthcare account manager to a significant other at home: No Do you presently have visiting nurse or other home services: No Patient Tobacco Use Status: Never used Tobacco e-Cigarette/Vaping Use: Never Used Substance Use Type: Marijuana service: No Review of Systems Const All systems reviewed & are unremarkable except as noted in HPI and below Physical Exam Const General: cooperative, healthy appearing and no acute distress Resp Effort & Inspection: normal respiratory effort and able to speak in complete sentences Cardio Rate: regular rate Peripheral pulses: Peripheral pulses 2+ throughout GI Palpation (GI): Soft to palpation Skin Lesions: no lesions Rashes: no rashes Extrem Other: Right lower extremity: Incision sites are clean, dry, and intact. Hamlet intact. Moderate edema in the right foot and ankle. Able to dorsiflex and plantarflex. Able to perform knee flexion and extension. Sensation is intact. NVI. Assessment & Plan Assessment & Plan (1) Closed fracture of posterior malleolus of right tibia: Code(s): S82.391A - Other fracture of lower end of right tibia, initial encounter for closed fracture Category: Medical (2) Closed fracture of right tibia and fibula: Code(s): S82.201A - Unspecified fracture of shaft of right tibia, initial encounter for closed fracture; S82.401A - Unspecified fracture of shaft of right fibula, initial encounter for closed fracture Category: Medical (3) Fracture of tibia and fibula: Code(s): S82.209A - Unspecified fracture of shaft of unspecified tibia, initial encounter for closed fracture; S82.409A - Unspecified fracture of shaft of unspecified fibula, initial encounter for closed fracture Category: Medical Qualifiers: Encounter type: initial encounter Fracture type: closed Laterality: right Qualified Code(s): S82.201A - Unspecified fracture of shaft of right tibia, initial encounter for closed fracture; S82.401A - Unspecified fracture of shaft of right fibula, initial encounter for closed fracture Plan Mr. Cobb is a 24-year-old male who presents in the office today one week status post right tibial IM nailing which was performed on 05/02/[address] Blum. While in the office today, the patient reports improved pain for the past 2 days. He mentions he has not been feeling much ?pulsating? when he lifts his right lower extremity. He has been using the crutches as directed. Dr. Blum was available to speak with me and see the patient today; and a collaborative treatment plan was made. Annalisa were removed, and steri-strips we re applied. The patient was placed into a tall walking boot, off the shelf. He may partially weight bear as tolerated. He was educated on strict elevation to assist with edema. X-rays of the right lower extremity which were obtained while in the office today and were reviewed by me, Ama Bull PA-C, revealed intact orthopedic hardware with routine healing. Follow-up will be in 4 weeks with repeat x-rays, or sooner if needed. Orders: Orders XR ankle RT min 3V 05/13/24 M25.579 - Pain in unspecified ankle and joints of unspecified foot XR tibia fibula RT 2V 05/13/24 S82.201A - Unspecified fracture of shaft of right tibia, initial encounter for closed fracture, S82.391A - Other fracture of lower end of right tibia, initial encounter for closed fracture, S82.401A - Unspecified fracture of shaft of right fibula, initial encounter for closed fracture Patient Instructions: Scribed by Jazzy Franco medical assistant supervisor, for Ama Mlchance GUAN on 05/13/24 at 11:26 am EST. Coding Level of Care Code Global (25829) Diagnoses Closed fracture of posterior malleolus of right tibia S82.391A Closed fracture of right tibia and fibula S82.201A; S82.401A Fracture of tibia and fibula S82.201A; S82.401A Encounter type: initial encounter Fracture type: closed Laterality: right
== END 2024-05-13 12:56 | disposition home or self-care (01) ==
PROVIDERS: PCP Internal Medicine; Visit Provider Physician Assistant
DX: S82.391A Other fracture of lower end of right tibia, initial encounter for closed fracture (principal); S82.201A Unspecified fracture of shaft of right tibia, initial encounter for closed fracture; S82.401A Unspecified fracture of shaft of right fibula, initial encounter for closed fracture
CPT/HCPCS: 99024

== ENCOUNTER 2024-06-10 10:01 | Outpatient (REF) | payer SELFPAY | END 2024-06-10 10:02 | disposition home or self-care (01) | LOC: HO.HOSX 10:01 | PROVIDERS: Visit Provider Orthopaedic Surgery | DX: S82.391A Other fracture of lower end of right tibia, initial encounter for closed fracture (principal); S82.401A Unspecified fracture of shaft of right fibula, initial encounter for closed fracture; S82.201A Unspecified fracture of shaft of right tibia, initial encounter for closed fracture | CPT/HCPCS: 73590; 99212 ==

== ENCOUNTER 2024-06-10 11:24 | Outpatient (AMB) | payer SELFPAY ==
--- NOTE | 2024-06-10 11:26 | MHC.OFFVIS ---
Intake Visit Reasons: PO-R tibia IMN 05/02/24 Intake Note: Jhonatan is a 24 year old male who presents today for a post operative appointment s/p Right Tibia IMN 05/02/2024. At his last visit he was placed in a tall walking boot and instructed to PWBAT Allergies No Known Allergies Allergy (Verified 05/13/24 10:54) HPI HPI PO-R tibia IMN 05/02/24: Details: Jhonatan is a 24 year old male who presents today for a post operative appointment s/p Right Tibia IMN 05/02/2024. At his last visit he was placed in a tall walking boot and instructed to PWBAT PFSH Social History Household Members: Friend(s) Housing: House Are you a primary client care representative to a significant other at home: No Do you presently have visiting nurse or other home services: No Patient Tobacco Use Status: Never used Tobacco e-Cigarette/Vaping Use: Never Used Substance Use Type: Marijuana service: No Physical Exam Extrem Other: Incision clean dry and intact. Sensation intact to light touch. Results Reviewed Results Reviewed: I personally reviewed relevant radiographs. Stable appearance right IM nail with no evidence of hardware complication or change in alignment. Assessment & Plan Assessment & Plan (1) Closed fracture of right tibia and fibula: Code(s): S82.201A - Unspecified fracture of shaft of right tibia, initial encounter for closed fracture; S82.401A - Unspecified fracture of shaft of right fibula, initial encounter for closed fracture Category: Medical Plan: 24-year-old doing well status post IM nail. Weightbearing limited because of the posterior malleolar fracture which appears stable. We will progress weight-bearing 25% a week until full weight-bearing in the boot and at that time he can remove the boot and weightbear as tolerated. I discussed this with him. Physical therapy prescription was written and I will see him back in 6 weeks. Orders: Orders XR tibia fibula RT 2V Today S82.391A - Other fracture of lower end of right tibia, initial encounter for closed fracture PT Evaluation and Treatment Today S82.201A - Unspecified fracture of shaft of right tibia, initial encounter for closed fracture, S82.401A - Unspecified fracture of shaft of right fibula, initial encounter for closed fracture Coding Level of Care Code Global (60881) Diagnoses Closed fracture of right tibia and fibula S82.201A; S82.401A
== END 2024-06-10 11:58 | disposition home or self-care (01) ==
LOC: HO.HOS 11:25
PROVIDERS: PCP Internal Medicine; Visit Provider Orthopaedic Surgery
DX: S82.201A Unspecified fracture of shaft of right tibia, initial encounter for closed fracture (principal); S82.401A Unspecified fracture of shaft of right fibula, initial encounter for closed fracture
CPT/HCPCS: 99024

== ENCOUNTER → 2024-06-10 11:38 | Outpatient (BNV) | payer SELFPAY | PROVIDERS: Visit Provider Radiology Diagnostic Radiology | DX: S82.201A Unspecified fracture of shaft of right tibia, initial encounter for closed fracture (principal) | CPT/HCPCS: 73590 ==

== ENCOUNTER 2024-07-18 12:14 | Outpatient (REF) | payer SELFPAY ==
--- NOTE | ~2024-07-18 | XR_ITS ---
EXAMINATION: XR TIBIA AND FIBULA RIGHT CLINICAL INFORMATION: Unspecified fracture of shaft of right tibia, initial encounter S82.201A. COMPARISON: XR Right tibia fibula 06/10/2024 TECHNIQUE: AP and lateral views of the right tibia and fibula were obtained. FINDINGS: Intramedullary nail of the tibia and screws appear intact. No change in the appearance of the tibial fracture. There has been some callus formation along the posterior aspect of the fibular fracture. Stable alignment. No new abnormality. XR/XR tibia fibula RT 2V IMPRESSION: No change in the appearance of the tibial fracture. There has been some callus formation along the posterior aspect of the fibular fracture. Electronically signed by: Jessee Chirinos MD 08/25/2024 11:01 AM VERNA
--- OUTSIDE RECORDS SUMMARY | 2024-07-20 15:24 | XMS_ITS | Continuity of Care Document ---
Author Organization [facility] lt Address [address] [place] [address]- Care Team Providers Care Commissioned Sales Associate Name Role Phone Braden Bustamante MD Primary Care Physician [place] [facility] [place]24 [facility] [address] [place] [address]- Attending Physician: Braden Bustamante MD Encounter Type: Pre Office Visit Allergies, Adverse Reactions, Alerts No Known Allergies [...] Vaccine (old term) 98 Recorded 1Result Comment: [facility]-[id number] Medications clindamycin-tretinoin 1.2%-0.025% topical gel 1 application, Topically, Daily at bedtime, # 60 Gm, 0 Refills, Maintenance, 05/11/23 1:22:00 PM EDT, Gel, Partial fill upon patient request if the prescription is for a schedule II opioid drug. Start Date: 05/11/23 Status: Ordered Quantity: 60.0 Unit: g Repeat number: 1 Doxycycline 100 mg, By Mouth, 2 times a day, Maintenance, 05/11/23 1:21:00 PM EDT Start Date: 05/11/23 Status: Ordered Repeat number: 1 Problem List Condition Confirmation Course Effective Dates Status Health St atus Informant Acne Confirmed Active Anxiety Confirmed Active Brain concussion Confirmed Active Dysuria Confirmed Active Epididymitis Confirmed Active Fatigue Confirmed Active Hair loss Confirmed Active Sinusitis Confirmed Active Tinea pedis of both feet Confirmed Active Tobacco use Confirmed Active Social History Social History Type Response Smoking Status Former smoker, quit more than 30 days ago entered on: 06/14/21 Sex Sex Representation Male (finding) Patient Care team information Care Team Personnel Name: Braden Bustamante MD Position: S Physician - Primary Care Member Role: PCP Address: [address] [place] [address] [place] [address]- [place] Telecom: Care Team Related Persons Name: PEDRO CASTRO Name: PEDRO CASTRO Name: KASEY MENON Insurance Providers Guarantor name: LASHELL GLORIA Health Plan Information #: 1 Payer: [employer] Member Number: [id number] Policy Number: NA Group Number: [id number] Health Plan Information #: 2 Payer: [employer] Member Number: [id number] Policy Number: NA Group Number: NA
--- OUTSIDE RECORDS SUMMARY | 2024-07-20 15:24 | XMS_ITS | Continuity of Care Document ---
Author Organization [facility] lt Address [address] [place] [address]- Care Team Providers Care Stockroom Worker Name Role Phone Robby SHEIKH, Braden Mae Primary Care Physician Encounter [facility] [place] Date(s): 06/13/24 - 07/13/24 [facility] Adult [address] [place] [address]- Attending Physician: Liborio Oswald Admitting Physician: Liborio Oswald Referring Physician: AdmLiborio narayan Encounter Type: Triage Allergies, Adverse Reactions, Alerts No Known Allergies [...] Vaccine (old term) 98 Recorded 1Result Comment: [id number] Medications clindamycin-tretinoin 1.2%-0.025% topical gel 1 application, [...] Care team information Care Team Personnel Name: Rboby SHEIKH, Braden Mae Position: [facility] Physician - Primary Care Member Role: PCP Address: [address] [place] [address]- Telecom: Care Team Related Persons Name: PEDRO CASTRO Name: PEDRO CASTRO Name: KASEY MENON Insurance Providers Guarantor name: LASHELL CASTRO Health Plan Information #: 1 Payer: [employer] Member Number: NA Policy Number: NA Group Number: NA
--- OUTSIDE RECORDS SUMMARY | 2024-07-20 15:24 | XMS_ITS | Data Portability ---
Author Organization [facility] javy [address] Address [address] [place] [address] Assessment Encounter Date Assessment Date Assessment LastModified by Organization Details LastModified Time 03/29/2024 03/29/2024 [facility] ED expect called in to [facility], informed may need Opth consult. Pt agreed and went to ED as passenger in private vehicle nmakris Not available 03/29/2024 09:29:42 Plan of Treatment Reminders Order Date Submit Date Provider Last Modified By Organization Details Last Modified Time Details Appointments None recorded. Lab None recorded. Referral emergency medicine referral 2023 024 [email or web address] [facility] Emergency Room, [address] [place], [address], 10:24:58 Procedures None recorded. Surgeries None recorded. Imaging None recorded. Medication Orders None recorded. Patient TargetsNo targets recorded. Patient InstructionsNo instructions recorded. Reason for Referral Emergency Medicine Referral for Corneal foreign body Referring Physician: Geri Oliva, Urgent Care, Encounter Date: 03/29/2024 Problems Name Problem SNOMED Code Status Onset Date Resolution Date Notes Provider Name and Address Organization Details Recorded Time Corneal foreign body 47368529 Active 024 GERI OLIVA NP [address] [place], [address] , [place] [facility] 03/29/2024 09:28:43 Problem Notes None recorded. Procedures Surgical History Date Name Laterality Status Provider Name and Address Organization Details Recorded Time Fluorescein Eye Exam completed GERI OLIVA NP [address] [place], [address], [place] PA - [facility] 03/29/2024 08:57:59 OC-DOT PHYSICAL completed Lexi Brit PA - [facility] 02/19/2024 08:25:21 Imaging Results None recorded. Procedure Notes None recorded. Medical Equipment None Reported. Allergies No known drug allergies Medications Not known to be on any medication Vitals Date Recorded Body height Body mass index (BMI) Body weight Oxygen saturation Oxygen saturation in Arterial blood by Pulse oximetry Heart rate Respiratory rate Body temperature Systolic blood pressure Diastolic blood pressure Provider Name and Address Organization Details Last Updated DateTime 4 182.88 cm 25.8 kg/m2 14872.5 5 g 99 % 99 % 62 /min 16 /min 97.2 [degF] 120 mm[Hg] 80 mm[Hg] Lexi Brit PA - [facility] 08:28:39 Date Recorded Body height Body mass index (BMI) Body weight Oxygen saturation Oxygen saturation in Arterial blood by Pulse oximetry Heart rate Respiratory rate Body temperature Systolic blood pressure Diastolic blood pressure Provider Name and Address Organization Details Last Updated DateTime 4 182.88 cm 25.8 kg/m2 05944.5 5 g 99 % 99 % 82 /min 18 /min 97.2 [degF] 134 mm[Hg] 81 mm[Hg] Marli Addison PA - [facility] 08:11:24 Social History Question Answer Notes LastModified by Organizat ion Details LastModified Time Tobacco Smoking Status Current Every Day Smoker Lexi Brit gunn PA - [facility] 02/19/2024 08:25:55 What Is Your Level Of Alcohol Consumption? None [email or web address] Information not available 02/19/2024 Sex: Unknown Functional Status None recorded. Mental Status None recorded. Family History Nothing Reported. Medical History No medical history recorded. Past Encounters Encounter ID Performer Location Encounter Start Date Encounter Closed Date Diagnosis/Indication Diagnosis SNOMED-CT Code Diagnosis ICD10 Code [id number] [address] [address] 11/06/2020 16:46:06 11/06/2020 18:21:23 [id number] [address] [place], [place] [address], [place] [address] 11/16/2020 12:56:18 11/16/2020 14:38:49 [id number] [address] [place] [address] 11/19/2020 11:17:13 11/19/2020 12:16:24 [id number] [place] [address] 11/06/2020 15:33:27 11/06/2020 16:06:47 [id number] [address] [place] [address] 10/29/2015 13:59:57 10/29/2015 14:26:16 [id number] [place] [address] [place] [address] 02/19/2024 08:12:13 02/19/2024 08:49:23 [employer] license medical examination 870661729 Z02.4 Physical examination 588 0005 Z02.4 [id number] [place] [address] [place] [address] 03/29/2024 08:04:25 03/29/2024 09:31:27 Corneal foreign body 30337415 T15.02XA Health Concerns Section Related Observation LastModified by Organization Detai ls LastModified Time None Recorded Concern Status LastModified by Organization Details LastModified Time None Recorded Advance Directives Directive None Recorded Payers Encounter Date Sequence Insurance Name Policy Number Policy Hayes Covered Member ID Hayes Member ID Guarantor Name 11/06/2020 1 [place] [id number] A Low Cobb [id number] 2 [facility] 11/16/2020 1 [place] [id number] A Low Cobb [id number] 2 [facility] 11/19/2020 1 [place] [id number] A Low Cobb [id number] 2 [facility] 02/19/2024 OC-PAY AT TIME OF SERVICE 2022 Jhonatan Cobb DOT PHYSICAL Jhonatan Cobb 03/29/2024 PROMPT PAY No agapito Cobb Notes Date Note Type Note Provider Name and Address Organization Details Recorded Time 4 text/html Eye problemsReported bypatient.source of patient informationInformation obtained from patient; Patient arrived at Urgent Care ambulatory Eye Symptoms:no sensitivity to light;redness;blurred vision;foreign body sensation;pain in the eyes;discharge Severity:moderate Onset/Timindays 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
== END 2024-07-18 12:15 | disposition home or self-care (01) ==
LOC: HO.HOSX 12:14
PROVIDERS: Visit Provider Orthopaedic Surgery
DX: S82.201D Unspecified fracture of shaft of right tibia, subsequent encounter for closed fracture with routine healing (principal); S82.401D Unspecified fracture of shaft of right fibula, subsequent encounter for closed fracture with routine healing; Z98.890 Other specified postprocedural states
CPT/HCPCS: 73590; 99212

== ENCOUNTER 2024-07-18 13:34 | Outpatient (AMB) | payer SELFPAY ==
--- NOTE | 2024-07-18 13:41 | MHC.OFFVIS ---
Intake Visit Reasons: PO-R tibia IMN 05/02/24 Intake Note: Jhonatan is a 24 year old male who presents today for a post operative appointment s/p Right Tibia IMN 05/02/2024. At his last visit he was instructed to wean to full weight bearing and weight bear as tolerated outside of boot. Physical therapy was also ordered. Allergies No Known Allergies Allergy (Verified 05/13/24 10:54) HPI HPI PO-R tibia IMN 05/02/24: Details: Jhonatan is a 24 year old male who presents today for a post operative appointment s/p Right Tibia IMN 05/02/2024. At his last visit he was instructed to wean to full weight bearing and weight bear as tolerated outside of boot. Physical therapy was also ordered. [facility] Social History Household Members: Friend(s) Housing: House Are you a primary manager long term care to a significant other at home: No Do you presently have visiting nurse or other home services: No Patient Tobacco Use Status: Never used Tobacco e-Cigarette/Vaping Use: Never Used Substance Use Type: Marijuana service: No Physical Exam Extrem Other: Full ROM knee and 15 deg DF and 20 deg PF right ankle. Inc c/d/i. No STS No pain Results Reviewed Results Reviewed: I personally reviewed relevant radiographs. Right tibial IMN with no hardware complications Fracture still visible. Alignment unchanged. Assessment & Plan Assessment & Plan (1) Closed fracture of right tibia and fibula: Code(s): S82.201A - Unspecified fracture of shaft of right tibia, initial encounter for closed fracture; S82.401A - Unspecified fracture of shaft of right fibula, initial encounter for closed fracture Category: Medical Plan: Continue WBAt. f/u 3 months Orders: Orders XR tibia fibula RT 2V 07/18/24 S82.201A - Unspecified fracture of shaft of right tibia, initial encounter for closed fracture, S82.401A - Unspecified fracture of shaft of right fibula, initial encounter for closed fracture Coding Level of Care Code Global (15096) Diagnoses Closed fracture of right tibia and fibula S82.201A; S82.401A
== END 2024-07-18 14:24 | disposition home or self-care (01) ==
PROVIDERS: PCP Internal Medicine; Visit Provider Orthopaedic Surgery
DX: S82.201A Unspecified fracture of shaft of right tibia, initial encounter for closed fracture (principal); S82.401A Unspecified fracture of shaft of right fibula, initial encounter for closed fracture
CPT/HCPCS: 99024

== ENCOUNTER 2024-10-24 09:11 | Outpatient (AMB) | payer BC, SELFPAY ==
--- NOTE | 2024-10-24 09:13 | A.OFFVIS_ITS ---
Intake Visit Reasons: OV-R tibia IMN 05/02/24-3 month follow up Intake Note: Jhonatan is a 24 year old male who presents today for a follow up of his right leg about 6 months s/p Right Tibia IMN 05/02/2024. At his last visit he was instructed to continue weight bearing as tolerated. Patient reports that he is doing well, he has been out of the boot. He has not concerns. At this time he explains that he has had some tension/stiffness in the knee with activity Allergies No Known Allergies Allergy (Verified 10/24/24 09:21) HPI HPI OV-R tibia IMN 05/02/24-3 month follow up: Details: Jhonatan is a 24 year old male who presents today for a follow up of his right leg about 6 months s/p Right Tibia IMN 05/02/2024. At his last visit he was instructed to continue weight bearing as tolerated. Patient reports that he is doing well, he has been out of the boot. He has not concerns. At this time he explains that he has had some tension/stiffness in the knee with activity PFSH Social History Household Members: Friend(s) Housing: House Are you a primary continuum of care manager to a significant other at home: No Do you presently have visiting nurse or other home services: No Patient Tobacco Use Status: Never used Tobacco e-Cigarette/Vaping Use: Never Used Substance Use Type: Marijuana service: No Physical Exam Extrem Other: inc c/d/i No tenderness to palpation Full range of motion ankle and knee Results Reviewed Results Reviewed: I personally reviewed relevant radiographs. Healing right tibial and fibular shaft fracture Assessment & Plan Assessment & Plan (1) Closed fracture of right tibia and fibula: Code(s): S82.201A - Unspecified fracture of shaft of right tibia, initial encounter for closed fracture; S82.401A - Unspecified fracture of shaft of right fibula, initial encounter for closed fracture Category: Medical Plan: Healing. No pain. Follow up 6 months for radiographs. No restrictions. Orders: Orders XR tibia fibula RT 2V Today S82.201A - Unspecified fracture of shaft of right tibia, initial encounter for closed fracture, S82.401A - Unspecified fracture of shaft of right fibula, initial encounter for closed fracture Coding Level of Care Code Est Pt Level 3 (76418) Diagnoses Closed fracture of right tibia and fibula S82.201A; S82.401A
--- OUTSIDE RECORDS SUMMARY | 2024-10-24 09:48 | XMS_ITS | Data Portability ---
Author Organization [facility]avy [address] Address [address] [place] [address] Assessment Encounter Date Assessment Date Assessment LastModified by Organization Details LastModified Time 03/29/2024 03/29/2024 [facility] ED expect called in to [facility], informed may need Opth consult. Pt agreed and went to ED as passenger in private vehicle nmakris Not available 03/29/2024 09:29:42 Plan of Treatment Reminders Order Date Submit Date Provider Last Modified By Organization Details Last Modified Time Details Appointments None recorded. Lab None recorded. Referral emergency medicine referral 2023 024 [email or web address] [facility] Emergency Room, [address] [place], [address], 10:24:58 Procedures None recorded. Surgeries None recorded. Imaging None recorded. Medication Orders None recorded. Patient TargetsNo targets recorded. Patient InstructionsNo instructions recorded. Reason for Referral Emergency Medicine Referral for Corneal foreign body Referring Physician: Geri Oliva, Urgent Care, Encounter Date: 03/29/2024 Problems Name Problem SNOMED Code Status Onset Date Resolution Date Notes Provider Name and Address Organization Details Recorded Time Corneal foreign body 65196532 Active 024 GERI OLIVA NP [address] [place], [address] , [place] [facility] 03/29/2024 09:28:43 Problem Notes None recorded. Procedures Surgical History Date Name Laterality Status Provider Name and Address Organization Details Recorded Time Fluorescein Eye Exam completed GERI OLIVA NP [address] [place], [address], [place] PA - [facility] 03/29/2024 08:57:59 [...] Updated DateTime 4 182.88 cm 25.8 kg/m2 63709.5 5 g 99 % 99 % 62 /min 16 /min 97.2 [degF] 120 mm[Hg] 80 mm[Hg] Lexi Brit PA - [facility] 08:28:39 Date Recorded Body height Body mass index (BMI) Body weight Pain severity - 0-10 verbal numeric rating [Score] - Reported Oxygen saturation Oxygen saturation in Arterial blood by Pulse oximetry Heart rate Respiratory rate Body temperature Systolic blood pressure Diastolic blood pressure Provider Name and Address Organization Details Last Updated DateTime 4 182.88 cm 25.8 kg/m2 01703.5 5 g 0 99 % 99 % 82 /min 18 /min 97.2 [degF] 134 mm[Hg] 81 mm[Hg] Marli Jaime PA - [facility] 08:11:24 Social History [...] Diagnosis/Indication Diagnosis SNOMED-CT Code Diagnosis ICD10 Code Diagnosis Note [id number] [address] [address] 11/06/2020 16:46:06 11/06/2020 18:21:23 [id number] [address] [place] [address] 11/16/2020 12:56:18 11/16/2020 14:38:49 [id number] [address] [place] [address] 11/19/2020 11:17:13 11/19/2020 12:16:24 [id number] [address] [place] [address] 11/06/2020 15:33:27 11/06/2020 16:06:47 [id number] [address] [facility] [place] [address] 10/29/2015 13:59:57 10/29/2015 14:26:16 [id number] [place] [address] [place] [address] 02/19/2024 08:12:13 02/19/2024 08:49:23 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 It's very important you be seen STANISLAW as you may have a life threatenin g condition. Please seek further care. Health Concerns Section Related Observation LastModified by Organization Detai ls LastModified Time None Recorded Concern Status LastModified by Organization Details LastModified Time None Recorded Advance Directives Directive None Recorded Payers Encounter Date Sequence Insurance Name Policy Number Policy Hayes Covered Member ID Hayes Member ID Guarantor Name 11/06/2020 1 [place] [id number] Terrence Cobb [id number] 2 Jhonatan Cobb 11/16/2020 1 [place] [id number] A Low Cobb [id number] 2 Jhonatan Cobb 11/19/2020 1 [place] [id number] A Low Cobb [id number] 2 Jhonatan Cobb 02/19/2024 OC-PAY AT TIME OF SERVICE 2022 Jhonatan Cobb DOT PHYSICAL DOT PHYSICAL Jhonatan Cobb 03/29/2024 PROMPT PAY [facility] Jordyn Notes Date Note Type Note Provider Name and Address Organization Details Recorded Time 4 text/html Eye problemsReported bypatient.source of patient informationInformation obtained from patient; Patient arrived at Urgent Care ambulatory Eye Symptoms:no sensitivity to light;redness;blurred vision;foreign body sensation;pain in the eyes;discharge Severity:moderate Onset/Timindays 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
== END 2024-10-24 09:41 | disposition home or self-care (01) ==
LOC: HO.HOS 09:12
PROVIDERS: PCP Internal Medicine; Visit Provider Orthopaedic Surgery
DX: S82.201D Unspecified fracture of shaft of right tibia, subsequent encounter for closed fracture with routine healing (principal); S82.401D Unspecified fracture of shaft of right fibula, subsequent encounter for closed fracture with routine healing
CPT/HCPCS: 99213

== ENCOUNTER → 2024-10-24 09:13 | Outpatient (BNV) | payer BC, SELFPAY | PROVIDERS: Visit Provider Radiology Diagnostic Radiology | DX: S82.301D Unspecified fracture of lower end of right tibia, subsequent encounter for closed fracture with routine healing (principal); S82.401D Unspecified fracture of shaft of right fibula, subsequent encounter for closed fracture with routine healing | CPT/HCPCS: 73590 ==

== ENCOUNTER 2024-10-24 09:32 | Outpatient (REF) | payer BC, SELFPAY ==
--- NOTE | ~2024-10-24 | XR_ITS ---
EXAMINATION: XR TIBIA FIBULA 2 VIEWS RIGHT HISTORY: S82.201A - Unspecified fracture of shaft of right tibia, initial encounter... COMPARISON: Comparison is made with the prior examination dated 07/18/2024. FINDINGS: AP and lateral views of the right tibia and fibula are submitted. Osseous mineralization is normal. The patient is again noted to be status post internal fixation of an oblique fracture of the distal tibia with an intramedullary josseline. The fracture line is less visible and there is greater callus formation noted, consistent with healing. A healing fracture of the midshaft of the fibula is also noted. The fracture line is less prominent. The visualized knee and ankle joint spaces are preserved. The soft tissues are unremarkable. XR/XR tibia fibula RT 2V IMPRESSION: Healing internally fixed fracture of the distal tibia. Healing mid shaft fibular fracture. Electronically signed by: Julian Fernandez MD 10/24/2024 02:20 PM EDT
== END 2024-10-24 09:33 | disposition home or self-care (01) ==
LOC: HO.HOSX 09:32
PROVIDERS: Visit Provider Orthopaedic Surgery
DX: S82.201D Unspecified fracture of shaft of right tibia, subsequent encounter for closed fracture with routine healing (principal); S82.401D Unspecified fracture of shaft of right fibula, subsequent encounter for closed fracture with routine healing; Z98.890 Other specified postprocedural states
CPT/HCPCS: 73590

== ENCOUNTER 2025-04-27 10:17 | Outpatient (REF) | payer BC, SELFPAY ==
--- NOTE | ~2025-04-27 | XR_ITS ---
EXAMINATION: XR TIBIA AND FIBULA, RIGHT CLINICAL INFORMATION: S82.201A - Unspecified fracture of shaft of right tibia, initial encount... COMPARISON: Radiographs on October 24, 2024 TECHNIQUE: AP and lateral views of the right tibia and fibula were obtained. FINDINGS: Internal fixation hardware in the tibia appears intact. Evidence of further healing process with less visible fracture line and greater callus formation at the level of the distal tibia. Evidence of further healing with less visible fracture line at the level of the mid ulna. No acute fractures. Normal alignment. Joint spaces are preserved. XR/XR tibia fibula RT 2V IMPRESSION: Further healing of the tibial and ulnar fractures. Electronically signed by: Mono Cuenca MD 04/27/2025 10:45 AM EDT
--- OUTSIDE RECORDS SUMMARY | 2025-04-27 12:17 | XMS_ITS | Encounter Summary ---
Author Organization [facility] Address [address] [place] [address] Care Team Providers Care School Operations Manager Name Role Phone Marty Cordero MD Primary Care Provider Unavail le Encounter Details Date Type Department Care Team Description 06/05/2016 Release of Information Medical Records [address] [place] [id number] Abstract, Provider Social History Tobacco Use Types Packs/Day Years Used Date Smoking Tobacco: Every Day Cigarettes Smokeless Tobacco: Former Quit: 03/07/2011 Comments:dad outside the [facility] se Alcohol Use Standard Drinks/Week Comments Yes 0 (1 standard drink = 0.6 oz pur e alcohol) weekends only Sex Assigned at Date Recorded Not on file documented as of this encounter Plan of Treatment Not on file documented as of this encounter Visit Diagnoses Not on filedocumented in this encounter Care Teams School Operations Manager Relationship Specialty Start Date End Date Marty Cordero MD PCP - General Pediatrics 12/06/15 documented as of this encounter
== END 2025-04-27 10:18 | disposition home or self-care (01) ==
LOC: HO.HOSX 10:17
PROVIDERS: PCP Internal Medicine; Visit Provider Orthopaedic Surgery
DX: S82.201D Unspecified fracture of shaft of right tibia, subsequent encounter for closed fracture with routine healing (principal); S82.401D Unspecified fracture of shaft of right fibula, subsequent encounter for closed fracture with routine healing; X58.XXXD Exposure to other specified factors, subsequent encounter
CPT/HCPCS: 73590

== ENCOUNTER 2025-04-27 10:17 | Outpatient (AMB) | payer BC, SELFPAY ==
--- NOTE | 2025-04-27 10:40 | MHC.OFFVIS ---
Intake Visit Reasons: OV-R tibia IMN 05/02/24 Intake Note: Jhonatan is a 25 year old male who presents today for a follow up of his right leg about one year s/p Right Tibia IMN 05/02/2024. Alisia reports that he is doing well with no concerns at this time. Allergies No Known Allergies Allergy (Verified 10/24/24 09:21) HPI HPI OV-R tibia IMN 05/02/24: Details: Jhonatan is a 25 year old male who presents today for a follow up of his right leg about one year s/p Right Tibia IMN 05/02/2024. Alisia reports that he is doing well with no concerns at this time. 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 He is not limited by his leg. He denies pain. Occasional mild discomfort. [facility] Social History Household Members: Friend(s) Housing: House Are you a primary resident care aid to a significant other at home: No Do you presently have visiting nurse or other home services: No Patient Tobacco Use Status: Never used Tobacco e-Cigarette/Vaping Use: Never Used Substance Use Type: Marijuana service: No Physical Exam Exam Exam: NAD nl gait 2+ DP No STS Inc c/d/i Results Reviewed Results Reviewed: I personally reviewed relevant radiographs. Right tibial nail present with anatomic alignment and fait fracture line visible. No hardware complications. Assessment & Plan Assessment & Plan (1) Fracture of tibia and fibula: Code(s): S82.209A - Unspecified fracture of shaft of unspecified tibia, initial encounter for closed fracture; S82.409A - Unspecified fracture of shaft of unspecified fibula, initial encounter for closed fracture Category: Medical Qualifiers: Encounter type: initial encounter Fracture type: closed Laterality: right Qualified Code(s): S82.201A - Unspecified fracture of shaft of right tibia, initial encounter for closed fracture; S82.401A - Unspecified fracture of shaft of right fibula, initial encounter for closed fracture Plan: Doing well with no pain. May continue activity as tolerated and follow up PRN Orders: Orders XR tibia fibula RT 2V 04/27/25 S82.201A - Unspecified fracture of shaft of right tibia, initial encounter for closed fracture, S82.401A - Unspecified fracture of shaft of right fibula, initial encounter for closed fracture Coding Level of Care Code Est Pt Level 3 (77174) Diagnoses Fracture of tibia and fibula S82.201A; S82.401A Encounter type: initial encounter Fracture type: closed Laterality: right
--- OUTSIDE RECORDS SUMMARY | 2025-04-27 12:16 | XMS_ITS | Clinical Summary ---
Author Organization [facility] Address [address] [facility] [address] [place] [address] Phone Care Team Providers Care Family Centered Specialist Name Role Phone Unknown, Unknown Primary Care Provider Unavamitul lable Allergies No known active allergies Medications No known medications Social History Tobacco Use Types Packs/Day Years Used Date Smoking Tobacco: Some Days Smokeless Tobacco: Never Alcohol Use Standard Drinks/Week Comments Yes 0 (1 standard drink = 0.6 oz pur e alcohol) Education Answer Date Recorded Are you interested in more education? Not on kimberly e 12/05/2022 Are you concerned about learning? Not on file 12/05/2022 No 12/05/2022 No 12/05/2022 Digital Access Answer Date Recorded No 01/06/2023 No 01/06/2023 No 01/06/2023 Reliable internet access at home? Not on file 01/06/2023 Device with a working camera? Not on file Sex and Gender Information Value Date Recorded Sex Assigned at Male 03/18/2019 10:01 PM EDT Legal Sex Male 9:59 PM EDT Gender Identity Male 03/18/2019 10:01 PM EDT Sexual Orientation Straight 03/18/2019 10 :01 PM EDT Last Filed Vital Signs Vital Sign Reading Time Taken Comments Blood Pressure 112/70 03/19/2019 2:05 AM EDT Pulse 61 03/19/2019 2:05 AM EDT Temperature 36.5 C (97.7 F) 03/19/2019 2:05 AM EDT Respiratory Rate 18 03/19/2019 2:05 AM EDT Oxygen Saturation 96% 03/19/2019 2:05 AM EDT Inhaled Oxygen Concentration - - Weight 72.6 kg (160 lb) 03/18/2019 10:03 PM EDT Height 185.4 cm (6' 1 ) 03/18/2019 10:03 PM EDT Body Mass Index 21.11 03/18/2019 10:03 PM EDT Plan of Treatment Health Maintenance Due Date Last Done Comments DEPRESSION SCREENING 2010 HPV VACCINES (2 - Male 2-dose series) 07/09/2012 01/07/2012 HEPATITIS C SCREENING 02/17/2016 HIV ONE-TIME SCREENING (18-65 YEARS) 02/17/2016 COVID-19 VACCINE ( season) 2024 08/20/2021 Adult Td,Tdap Booster 04/13/2028 04/13/2018, 013 HIB VACCINES Completed 07/09/1999, 06/12, 1998, Additional history exists MENINGOCOCCAL VACCINES (ACWY) Aged Out 01/07/2012 No longer eligible based on patient's age to complete this topic HEPATITIS A VACCINES Aged Out No long er eligible based on patient's age to complete this topic MENINGOCOCCAL VACCINES (B) Aged Out N o longer eligible based on patient's age to complete this topic PNEUMOCOCCAL VACCINES (0-49 years) Aged Out No longer eligible based on patient's age to complete this topic Medical Devices Not on file Insurance [facility] [place] [address] [place] [address] PPO EPO PPO EPO PPO EPO [place] [address] [place] [address] [place] [address] [place] [address] [place] [address] [place] [address] PPO EPO Care Teams Family Centered Specialist Relationship Specialty Start Date End Date Unknown, Unknown, PCP - General 03/18/19 Additional Source Comments The information contained in this document represents components of the legal health record. It is not the complete legal health record.[facility]
== END 2025-04-27 11:06 | disposition home or self-care (01) ==
LOC: HO.HOS 10:18
PROVIDERS: PCP Internal Medicine; Visit Provider Orthopaedic Surgery
DX: S82.201A Unspecified fracture of shaft of right tibia, initial encounter for closed fracture (principal); S82.401A Unspecified fracture of shaft of right fibula, initial encounter for closed fracture
CPT/HCPCS: 99213

== ENCOUNTER → 2025-04-27 10:21 | Outpatient (BNV) | payer BC, SELFPAY | PROVIDERS: PCP Internal Medicine; Visit Provider Radiology Body Imaging | DX: S82.201D Unspecified fracture of shaft of right tibia, subsequent encounter for closed fracture with routine healing (principal) | CPT/HCPCS: 73590 ==